=== PATIENT | male | born 1995 | race African-American/Black ===

== ENCOUNTER 2017-08-01 12:36 | Emergency (ER) | payer BC ==
[~2017-08-01] VITALS: Ht 170.2 cm; Wt 60.4 kg
[2017-08-01 12:39] VITALS: BP 129/85; PULSE 93; TEMP 37.2; O2SAT 99; Ht 170.2 cm; Wt 60.4 kg
[2017-08-01] MEDS ORDERED: TRAM-453 PO (13:03)
[2017-08-01] MEDS ORDERED: AMOX500T3 PO (13:03)
--- NOTE | 2017-08-01 13:10 | EMERGENCY ROOM VISIT NOTE ---
ED Visit Note First contact with patient: 12:43 CHIEF COMPLAINT: Toothache, gum pain, left facial pain HISTORY OF PRESENT ILLNESS: This 21-year-old male patient presented to the emergency department, ambulatory, with progressive facial and gum pain on the left side for 1 day. The patient states he noticed the pain was in his left upper teeth and gums after attempting to eat yesterday. He states he was unable to tolerate eating on the left side. He has had a decreased appetite and mild body aches and chills. He denies any fever. The patient believes it is coming from the left upper gums. The pain is now steady and severe and radiates to the face. The patient does not have a dentist appointment set up. He does have a local dentist, and was recently seen to have his wisdom teeth removed. They rate their pain a 10/10 and the ibuprofen and Tylenol they have been taking intermittently has not relieved the pain. Denies facial swelling or fever. The patient denies any discharge from the mouth. REVIEW OF SYSTEMS: A 6 system review of systems was completed with positives and pertinent negatives listed in the HPI. ALLERGIES: None MEDICATIONS: None PMH: None SOCIAL HISTORY: The patient lives locally with family. He denies drug, alcohol, tobacco use. PHYSICAL EXAM: Vitals are noted on the nurse's note and reviewed by myself. Vital signs stable. Temperature 37.2C orally. GENERAL: This is a 21-year-old male, in no acute distress, nondiaphoretic, well-developed well-nourished. MOUTH: There is no specific obvious tender tooth, however the left upper gum is swollen and tender, without any discharge or signs of an abscess. The remainder of the pharynx and tonsils are without erythema, edema, or exudate. The airway is patent. There is no facial swelling, cervical or submandibular lymphadenopathy. The patient appears uncomfortable and in pain. The patient has overall good dental hygiene. EARS: External auditory canals clear, tympanic membranes pearly hernández without erythema or effusion bilaterally. NOSE: Turbinates not swollen. There is no erythema or edema. There is no significant nasal drainage. No sinus tenderness of the maxillary or frontal sinuses noted. NECK: Supple, no lymphadenopathy. No tenderness of the cervical spine. HEART: RRR, no murmurs, gallops, or rubs. LUNGS: CTA bilaterally. ED COURSE: The patient was seen and evaluated as above. He does report a history of seasonal allergies, and states they were acting up last week. I suspect odontalgia associated to either a dental abscess versus acute sinus infection. The patient will be treated with amoxicillin 3 times daily with close follow-up by his dentist and PCP. The patient was agreeable. He will be given a very short course of tramadol to help with discomfort. He was instructed on the proper use of OTC analgesic medications. All questions were answered to the patient's satisfaction. He was certainly invited back to the emergency department for any worsening symptoms. Discharge instructions reviewed, patient was discharged home in good condition. I attest that I have personally reviewed the patient's current medication list. Patient was found to have normal blood pressure on screening and does not require follow-up. I did consult PDMP with no suspicious findings noted. Recent narcotic prescription from patient's recent dental extraction. Differential diagnosis includes odontalgia, periapical abscess, acute sinusitis , osteomyelitis, gingivitis, pulpitis, dental caries, periodontitis, malignancy , and others DIAGNOSIS: Odontalgia The chart was completed utilizing [employer] voice recognition software. Grammatical errors, random word insertions, pronoun errors, and incomplete sentences are an occasional consequence of this system due to software limitations, ambient noise, and hardware issues. Any formal questions or concerns about the content, text, or information contained within the body of this dictation should be directly addressed to the provider for clarification. Current/Historical Medications Scheduled Amoxicillin (Amoxil), 1 TAB PO TID Tramadol Hcl (Ultram), 50 MG PO Q6H Allergies Coded Allergies: No Known Allergies (Unverified , 08/01/17) Vital Signs Date Time Temp Pulse Resp B/P (MAP) Pulse Ox O2 Delivery O2 Flow Rate FiO2 08/01/17 12:39 37.2 93 20 129/85 99 Room Air Departure Information Impression Primary Impression: Odontalgia Dispostion Home / Self-Care Condition GOOD Prescriptions Tramadol Hcl (ULTRAM) 50 Mg Tab 50 MG PO Q6H, #4 TAB PRN PAIN Prov: Lexi Buckley PA-C 08/01/17 Amoxicillin (AMOXIL) 500 Mg Tab 1 TAB PO TID for 10 Days, #30 TAB Prov: Lexi Buckley PA-C 08/01/17 Referrals No Doctor, Assigned (PCP) Patient Instructions ED Abscess Dental, [facility] Additional Instructions You have been treated in the Emergency Department for Dental Pain. You have been prescribed tramadol to be used for pain control. This is a narcotic medication. You cannot drive or consume alcohol while on this medicine. This medicine should only be used for pain that cannot be controlled with [id number] pain medicines. You were prescribed amoxicillin to be taken 3 times daily. This is an antibiotic. All antibiotics have the potential to cause diarrhea. Stop this medication and contact a medical provider if you were to develop any significant adverse side effects including: wheezing, shortness of breath, passing out, vomiting, or a diffuse rash. Always take antibiotics as directed and COMPLETE the ENTIRE course regardless of the improvement of your symptoms. For pain control, you can use the following [id number] medicines (if >12 yo): Ibuprofen(Motrin, Advil) may be used for fever or pain. Use 600mg every six hours as needed. Take with food. Avoid using more than 2400mg in a 24 hour period. Do not use 2400mg per day for more than three consecutive days without physician direction. Prolonged inappropriate use can lead to stomach upset or ulcers. (AND/OR) Acetaminophen(Tylenol) may be used for fever or pain. Use 1000mg every six hours as needed. Avoid using more than 3000mg in a 24 hour period. *Alternate these medications/dosages every 3-4 hours for increased pain control. Refrain from smoking cigarettes or using chewing tobacco until you have been evaluated by your dentist. Keeping beverages lukewarm and consuming soft foods can decrease your pain. Warm compresses over the affected area may offer some relief. You MUST seek evaluation of your dental pain by a dentist following your visit to the Emergency Department. The Emergency Department is not capable of treating dental issues long-term. You should call your dentist as soon as possible to make an appointment for evaluation of your dental pain. Return to the emergency department if you develop the following symptoms despite treatment course outlined above: fever, intractable pain, increased redness, swelling, or purulent discharge.
== END 2017-08-01 13:16 | disposition home or self-care (01) ==
LOC: C.EDB 12:38 → C.EDD 13:16
DX: K08.89 Other specified disorders of teeth and supporting structures (principal)